=== PATIENT | female | born 1960 | race Caucasian/White ===

== ENCOUNTER 2017-12-30 08:10 | Day surgery (SDC) | payer OTHER ==
--- OUTSIDE RECORDS SUMMARY | 2017-12-30 08:16 | XMS REPORT | Clinical Summary ---
:1960 Author Organization [facility] Address [address] [place] [address] Care Team Providers Name Role Phone Demetria Peralta MD Primary Care Provider Allergies Active Allergy Reactions Severity Noted Date Comments Codeine GI Intolerance 08/14/2016 Current Medications Prescription Sig. Disp. Refills Start Date End Date Status citalopram (CeleXA) 40 MG 06/18/2016 Active tablet metFORMIN (GLUCOPHAGE) 07/02/2016 Active 500 MG tablet SYNTHROID 100 mcg tablet 06/18/2016 Active estradiol (ESTRACE) 2 MG 07/02/2016 Active tablet nztbvecqnj-qzgpbzg-ehcvgc TK ONE C PO Q 12 H 1 07/02/2016 Active ne (FIORINAL) 50-325-40 PRN. NOT TO EXCEED mg per capsule 6 CS PER 24 H VITAMIN D2 50,000 unit 07/02/2016 Active capsule amLODIPine (NORVASC) 5 MG 07/27/2016 Active tablet valsartan-hydrochlorothia 06/18/2016 Active zide (DIOVAN-HCT) 320-25 mg per tablet triamterene-hydrochloroth 05/20/2016 Active iazid (DYAZIDE) 37.5-25 mg per capsule Active Problems Problem Noted Date Trigger finger, right index finger 08/14/2016 Family History Medical History Relation Name Comments Hypertension Brother Hypertension Father Cancer Mother Relation Name Status Comments Brother Father Mother Social History Tobacco Use Types Packs/Day Years Used Date Never Smoker Smokeless Tobacco: Never Used Alcohol Use Drinks/Week oz/Week Comments Yes Sex Assigned at Date Recorded Not on file Last Filed Vital Signs Not on file Plan of Treatment Health Maintenance Due Date Last Done Comments PAP SMEAR 1982 COLONOSCOPY 2011 MAMMOGRAM 2011 INFLUENZA VACCINE 04/22/2018 Results Not on fileafter 12/29/2016 Insurance Payer Benefit Plan / Group Subscriber ID Type Phone Address [employer] PPO xxxxxxxxxxx PPO Work: [id number] [facility] [phone] Home: [id number]
[2017-12-30] MEDS ORDERED: SCOPOLAMINE HYDROBROMIDE PATCH TD ONE (08:31)
[2017-12-30] MEDS ORDERED: NS 0.9% VIAL 10 ML ONE (08:35)
[2017-12-30] MEDS ORDERED: CEFAZOLIN SODIUM 1 GM/VIAL ONE (08:35)
[2017-12-30] MEDS ORDERED: GENTAMICIN SULF 80 MG/2ML INJ ONE (08:35)
[2017-12-30] MEDS ORDERED: BACITRACIN 50000 UNIT VIAL ONE (08:36)
[2017-12-30] MEDS ORDERED: Ringers Lactate 0 ML IV ONE ×2 (08:36)
--- NOTE | 2017-12-30 08:36 | RAD REPORT ---
EXAM DESCRIPTION: RADOP - Outpt Chest Pa/Lat (2 Views) - 12/30/2017 8:05 am CLINICAL HISTORY: Preop chest, pending breast surgery COMPARISON: None. TECHNIQUE: PA and lateral views of the chest were obtained. FINDINGS: The lungs are clear. Heart size is normal and central vasculature is within normal limits . No pleural effusion or pneumothorax seen. No acute bony finding noted. No acute aortic finding. IMPRESSION: No acute cardiopulmonary process.
[2017-12-30] MEDS ORDERED: PROPOFOL 200 MG/20 ML VIAL IV ONE ×2 (08:43→13:54)
[2017-12-30] MEDS ORDERED: LIDOCAINE 2% MPF 5 ML VIAL ONE (08:44)
[2017-12-30] MEDS ORDERED: FENTANYL CITR 250 MCG/5 ML ONE (08:44)
[2017-12-30] MEDS ORDERED: ONDANSETRON 4 MG/2 ML VIAL ONE ×2 (08:45→09:56)
[2017-12-30] MEDS ORDERED: ROCURONIUM 50 MG/5 ML VIAL IV ONE ×2 (08:45→10:42)
[2017-12-30] MEDS ORDERED: CEFAZOLIN/SWI 1gm 1 GM/10 ML SYR ONE (08:47)
[2017-12-30] MEDS ORDERED: NA CHLORIDE 0.9% 1,000 ML ONE ×3 (08:47→09:04)
[2017-12-30] MEDS ORDERED: MIDAZOLAM HCL 2 MG/2 ML INJ ONE (08:50)
[2017-12-30] MEDS ORDERED: MEPERIDINE HCL 25 MG/0.5 ML ONE ×2 (09:05→15:48)
[2017-12-30 09:06] LABS: T3 Free 3.43 pg/ml (2.84-4.24)
[2017-12-30] MEDS ORDERED: PROMETHAZINE 25 MG/ML VIAL ONE (09:12)
[2017-12-30 09:23] LABS: Thyroid Stimulating Hormone 0.76 uIU/mL (0.34-5.60)
[2017-12-30 09:29] LABS: Urine Appearance CLOUDY; Urine Bilirubin NEGATIVE (NEG); Urine Blood NEGATIVE (NEG); Urine Color YELLOW; Urine Glucose NEGATIVE (NEG); Urine Protein NEGATIVE (NEG); Urine Urobilinogen 0.2 mg/dL (0.2-1.0); Urine pH 5.5 (5.0-7.0)
[2017-12-30 09:32] LABS: Urine Microscopic Reflex ORDER UMIC
[2017-12-30] MEDS ORDERED: DEXAMETHASONE 10 MG/ML VIAL ONE (09:41)
[2017-12-30 09:53] LABS: Urine Amorphous Sediment 2+ /HPF (NONE SEEN); Urine Bacteria <20 /HPF (<20); Urine RBC NONE SEEN /HPF (NONE SEEN)
[2017-12-30 09:54] LABS: Urine Culture Reflex Order NOT NEEDED
[2017-12-30] MEDS ORDERED: NEOSTIGMINE 1 MG/ML -5 ML SYRINGE ONE (09:55)
[2017-12-30] MEDS ORDERED: GLYCOPYRROLATE 0.2 MG/ML SYR ONE (09:55)
[2017-12-30] MEDS: Mastisol Adhesive Liq ONE ×2 (10:17→13:37)
--- NOTE | 2017-12-30 10:20 | EKG ---
Test Date: 2017-12-30 Test Time: 07:56:03 Advertising Space Clerk: UZMA MEASUREMENT RESULTS: Intervals: Rate: 67 CT: 146 QRSD: 86 QT: 444 QTc: 469 Clarkson: P: 53 CT: 146 QRS: 62 T: 65 INTERPRETIVE STATEMENTS: Normal sinus rhythm Normal ECG No previous ECG available for comparison Electronically Signed On 12-30-17 10:19:05 CDT by Jose Juan Pacheco
[2017-12-30] MEDS ORDERED: EPHEDRINE SULF 50 MG/5 ML SYR ONE (10:34)
[2017-12-30] MEDS ORDERED: KETOROLAC 30 MG/ML INJ ONE (12:22)
--- NOTE | 2017-12-31 02:00 | OP ---
Surgeon: Faustino Mueller MD Wireless Field Technician: Bill. Preoperative Diagnoses: Breast enlargement and descent. Postoperative Diagnoses: Breast enlargement and descent. Procedure Performed: Lift with reduction. Anesthesia: General. Description Of Procedure: After satisfactory induction of general anesthesia, the breasts were prepp ed with DuraPrep and dry sterile drapes were applied in the usual manner. A 42 template was used to outline the right areola. Then, a transverse curvilinear inferior incision was made. The intervenin g skin was de-epithelialized with EpiCut or dermabrader. Then, a transverse incision was made with e lectrocautery. The flap was elevated toward the clavicle, sternum, and anterior axillary line to thi ckness 1.6 cm. Then, after this was done, a retropectoral dissection was performed and then the infe rior incision was made with a scalpel. Electrocautery used for hemostasis. The de-epithelialized ti ssue was formed into a cone with 2-0 PDS. Straps were elevated at 12 o'clock and 1:30 and 3 o'clock position. The straps were woven in the pec major back to the base of cone, back to themselves, event ually sewn with 2-0 PDS. This was done for the 12 o'clock and 1:30 straps. The 3 o'clock strap was sewn over the sternum at 3 o'clock position with 2-0 Ethibond. The wound was carefully stapled shut. The left side was done in mirror image manner. We then returned to right side, irrigated with anti biotic solution. Electrocautery used for hemostasis. A 10 JEF was brought out the axilla and sewn in place with 2-0 silk and then the wound was closed in layers, 3-0 Vicryl for subcu, 3-0 PDS running s ubcuticular tied in the vertical meridian breast. Left side was done in an identical manner. The pa tient was sat up. Site for new nipple-areolar complex was marked out. A 42 template was used. Tiss ue was cored out scalpel and nipple was delivered. Then it was sewn and placed a 4-0 PDS interrupted , followed 4-0 PDS running subcuticular. Dressings of tincture of benzoin, Steri-Strips, 5 x 5s, flu ffs, and Jerry wrap. The amount removed from the right breast was 210 g and left breast is 200 g. The patient tolerated the procedure well and returned to recovery. RAMOS/DENNYS Voice ID: [id number] Report ID: [id number]
== END 2017-12-30 16:40 | disposition home or self-care (01) ==
LOC: OR 08:10
PROVIDERS: ATTEND Specialist
PROC: 0H0V0ZZ Alteration of Bilateral Breast, Open Approach (ICD-10-PCS; 2017-12-30)
PROC: 0H0V0ZZ Alteration of Bilateral Breast, Open Approach (ICD-10-PCS; principal; 2017-12-30 10:00)
DX: N62 Hypertrophy of breast (principal); N64.81 Ptosis of breast; E07.9 Disorder of thyroid, unspecified; I10 Essential (primary) hypertension; E11.9 Type 2 diabetes mellitus without complications; Z88.6 Allergy status to analgesic agent
CPT/HCPCS: 36415; 71046; 81003; 81015; 82947; 84439; 84443; 84481; 88305; 93005; J0690; J1100; J1580; J2175; J2250; J2405; J2550; J2710; J7030